=== PATIENT | female | born 1970 | race Caucasian/White ===

== ENCOUNTER 2017-06-10 23:29 | Emergency (ER) | payer OTHER ==
[~2017-06-10] VITALS: Ht 165.1 cm; Wt 65.8 kg
[2017-06-10 23:42] VITALS: Ht 165.1 cm; Wt 65.8 kg
[2017-06-11 02:42] VITALS: BP 140/86
== END 2017-06-11 02:42 | disposition home or self-care (01) ==
LOC: ED 23:29
DX: S01.01XA Laceration without foreign body of scalp, initial encounter (principal); F10.129 Alcohol abuse with intoxication, unspecified; W18.30XA Fall on same level, unspecified, initial encounter; Y93.89 Activity, other specified; Y99.8 Other external cause status; Y92.091 Bathroom in other non-institutional residence as the place of occurrence of the external cause
CPT/HCPCS: 90715; J2001

== ENCOUNTER 2017-06-12 12:09 | Emergency (ER) | payer OTHER ==
[~2017-06-12] VITALS: Ht 152.4 cm; Wt 55.3 kg
[2017-06-12 12:13] VITALS: BP 141/91; Ht 152.4 cm; Wt 55.3 kg
== END 2017-06-12 14:46 | disposition home or self-care (01) ==
LOC: ED 12:09
DX: S01.01XD Laceration without foreign body of scalp, subsequent encounter (principal); X58.XXXD Exposure to other specified factors, subsequent encounter